=== PATIENT | female | born 2000 | race Caucasian/White ===

== ENCOUNTER → 2019-05-28 09:31 | Outpatient (CLI) | payer BC, SELFPAY ==
[2019-05-28 12:29] LABS: Internal QC Validated? YES +Cl - CLEAR BKGD
[2019-05-28 12:32] LABS: Pregnancy, Urine Negative Negative
== END ==
PROVIDERS: Referring Provider Physician Assistant; Visit Provider Physician Assistant
DX: L70.0 Acne vulgaris (principal); L24.9 Irritant contact dermatitis, unspecified cause; Z79.899 Other long term (current) drug therapy
CPT/HCPCS: 81025

== ENCOUNTER → 2019-06-25 09:37 | Outpatient (CLI) | payer BC, SELFPAY ==
[2019-06-25 13:08] LABS: Internal QC Validated? YES +Cl - CLEAR BKGD; Pregnancy, Urine Negative Negative
== END ==
PROVIDERS: Family Provider Nurse Practitioner Family; PCP Nurse Practitioner Family; Referring Provider Physician Assistant; Visit Provider Physician Assistant
DX: L70.0 Acne vulgaris (principal); Z79.899 Other long term (current) drug therapy
CPT/HCPCS: 81025

== ENCOUNTER → 2019-07-23 09:50 | Outpatient (CLI) | payer BC, SELFPAY ==
[2019-07-23 12:06] LABS: Internal QC Validated? YES +Cl - CLEAR BKGD
[2019-07-23 12:09] LABS: Pregnancy, Urine Negative Negative
== END ==
PROVIDERS: Family Provider Nurse Practitioner Family; PCP Nurse Practitioner Family; Referring Provider Physician Assistant; Visit Provider Physician Assistant
DX: L70.0 Acne vulgaris (principal); Z79.899 Other long term (current) drug therapy
CPT/HCPCS: 81025

== ENCOUNTER → 2019-08-27 09:03 | Outpatient (CLI) | payer BC, SELFPAY ==
[2019-08-27 10:36] LABS: Internal QC Validated? YES +Cl - CLEAR BKGD; Pregnancy, Urine Negative Negative
== END ==
PROVIDERS: PCP Nurse Practitioner Family; Referring Provider Physician Assistant; Visit Provider Physician Assistant
DX: L70.0 Acne vulgaris (principal); Z79.899 Other long term (current) drug therapy
CPT/HCPCS: 81025

== ENCOUNTER → 2019-10-01 09:27 | Outpatient (CLI) | payer BC, SELFPAY ==
[2019-10-01 10:35] LABS: Internal QC Validated? YES +Cl - CLEAR BKGD; Pregnancy, Urine Negative Negative
== END ==
PROVIDERS: PCP Nurse Practitioner Family; Referring Provider Nurse Practitioner Family; Visit Provider Nurse Practitioner Family
DX: L70.0 Acne vulgaris (principal); Z79.899 Other long term (current) drug therapy
CPT/HCPCS: 81025